=== PATIENT | female | born 1975 | race Caucasian/White ===

== ENCOUNTER 2022-04-07 20:45 | Emergency (ER) | payer BC | END 2022-04-07 21:45 | disposition home or self-care (01) | LOC: LL.ED 20:45 | DX: S93.492A Sprain of other ligament of left ankle, initial encounter (principal); F10.120 Alcohol abuse with intoxication, uncomplicated; E66.9 Obesity, unspecified; Z87.891 Personal history of nicotine dependence; W10.8XXA Fall (on) (from) other stairs and steps, initial encounter | CPT/HCPCS: 73610-LT; 99283 ==

== ENCOUNTER 2022-12-12 16:50 | Emergency (ER) | payer BC ==
[2022-12-12 17:45] LABS: CORONAVIRUS COVID-19 NAA NEGATIVE (NEGATIVE); INFLUENZA A NAA NEGATIVE (NEGATIVE); INFLUENZA B NAA NEGATIVE (NEGATIVE); RESPIRATORY SYNCYTIAL VIR NAA NEGATIVE (NEGATIVE)
== END 2022-12-12 18:00 | disposition home or self-care (01) ==
LOC: LL.ED 16:50
DX: J02.9 Acute pharyngitis, unspecified (principal); I10 Essential (primary) hypertension; E66.9 Obesity, unspecified; F17.210 Nicotine dependence, cigarettes, uncomplicated; Z68.26 Body mass index [BMI] 26.0-26.9, adult; Z79.899 Other long term (current) drug therapy; Z20.822 Contact with and (suspected) exposure to COVID-19
CPT/HCPCS: 0241U; 87081; 87430; 99283